=== PATIENT | male | born 1990 | race African-American/Black ===

== ENCOUNTER 2020-06-23 13:46 | Emergency (ER) | payer SELFPAY ==
[~2020-06-23] VITALS: Ht 188 cm; Wt 95.3 kg
[2020-06-23 13:50] VITALS: BP 132/65
--- NOTE | 2020-06-23 13:55 | NUR ---
30 Y/O MALE PRESENTS WITH SORE THROAT/SOB/ FEVER AND CHILLS X2 DAYS. DENIES ANY N/V/D. RESP EVEN AND UNLABORED, DENIES ANY CHEST PAIN AT THIS TIME. AAOX3. AMBULATORY WITH STEADY GAIT. NO ACUTE DISTRESS NOTED AT THIS TIME. NO PMH NKDA
[2020-06-23 14:29] VITALS: BP 132/65
--- NOTE | 2020-06-23 14:30 | NUR ---
Patient discharged with v/s stable. Written and verbal after care instructions given and explained. Patient alert, oriented and verbalized understanding of instructions. Ambulatory with steady gait. All questions addressed prior to discharge. ID band removed. Patient advised to follow up with PMD. Rx of PROMETHAZINE, ALBUTEROL, NAPROSYN given. Patient educated on indication of medication including possible reaction and side effects. Opportunity to ask questions provided and answered.
== END 2020-06-23 14:30 | disposition home or self-care (01) ==
LOC: MED 13:46
DX: R05 Cough (principal); Z20.828 Contact with and (suspected) exposure to other viral communicable diseases; R06.02 Shortness of breath
CPT/HCPCS: 99283; U0003